=== PATIENT | female | born 1950 | race African-American/Black ===

== ENCOUNTER 2018-02-14 05:07 | Emergency (ER) | payer MEDICARE, MEDICAID ==
[~2018-02-14] VITALS: Ht 160 cm; Wt 53.0 kg
[2018-02-14 06:34] LABS: CLARITY URINE TURBID (CLEAR); KETONES URINE TRACE (NEGATIVE); LEUKOCYTE ESTERASE URINE 3+ (NEGATIVE); NITRITE URINE POSITIVE (NEGATIVE); OCCULT BLOOD URINE 3+ (NEGATIVE); PROTEIN URINE 2+ (NEGATIVE); SPECIFIC GRAVITY URINE 1.014 (1.005-1.030)
[2018-02-14 06:39] LABS: COLOR URINE BROWN (YELLOW)
[2018-02-14 08:02] VITALS: BP 128/84
== END 2018-02-14 08:07 | disposition home or self-care (01) ==
LOC: ER 05:07
DX: N39.0 Urinary tract infection, site not specified (principal); Z88.5 Allergy status to narcotic agent
CPT/HCPCS: 81003; 87077; 87086; 87186; 99284